=== PATIENT | female | born 1960 | race Caucasian/White ===

== ENCOUNTER → 2017-12-23 17:30 | Outpatient (CLI) | payer BC, SELFPAY ==
--- NOTE | 2017-12-23 17:30 | BI_ITS ---
MAMMOGRAPHY - BILATERAL SCREENING REASON FOR EXAM: Female, 57 years old. Routine annual screening examination. PERTINENT HISTORY: Aunt with breast cancer. TECHNIQUE: Digital bilateral breast yasmine (3D mammographic acquisition) in the CC and MLO projections. 2-D mediolateral oblique (MLO) and craniocaudad (CC) views of both breasts were obtained. CAD: Full Field Digital Mammography with Computer Added Detection was performed. COMPARISON: No comparison mammograms available at this time. If any prior films become available, an addendum to this report can be generated. FINDINGS: Breast Composition: The breasts are almost entirely fatty. There are no dominant masses or suspicious calcifications. Benign appearing bilateral axillary lymph nodes. No other significant abnormalities are identified. BI/SCREENING MAMM (CAD), BILAT IMPRESSION: Negative screening mammogram. Yearly followup mammogram recommended. (A) ASSESSMENT CATEGORY: BIRADS Category 2: Benign. A letter regarding these results will be sent to the patient by the facility within 30 days. Approximately 10% of breast cancers are not detected by mammography. A normal mammogram should not delay biopsy of a clinically suspicious abnormality. [id number] Electronically Signed: Bryan Rowe MD at 8:06 EDT Tel [phone], Service support ,
== END ==
PROVIDERS: Family Provider Family Medicine; PCP Family Medicine; Visit Provider Obstetrics & Gynecology
DX: Z12.31 Encounter for screening mammogram for malignant neoplasm of breast (principal)
CPT/HCPCS: 77063; 77067

== ENCOUNTER 2018-06-06 11:09 | Emergency (ER) | payer BC, SELFPAY ==
[2018-06-06 11:10] VITALS: BP 115/74; PULSE 82; RESP 18; TEMP 36.9; O2SAT 96; BMI 32.3
--- NOTE | 2018-06-06 11:27 | RAD_ITS ---
STUDY: X-RAY - LEFT SHOULDER REASON FOR EXAM: Female, 57 years old. Status post fall. Pain with decreased range of motion. TECHNIQUE: 2 view(s) of the shoulder. COMPARISON: None. FINDINGS: Normal glenohumeral articulation. Normal acromioclavicular joint. Normal acromion. There is an impacted fracture of the humeral neck. There is fracture of the greater tuberosity. The soft tissue structures are unremarkable. Normal visualized pulmonary apex. RAD/Shoulder min 2 Views IMPRESSION: Fracture of the proximal left humerus Electronically Signed: Michi Alvarado MD at 11:56 EST Tel , Service support ,
--- NOTE | 2018-06-06 11:28 | ED.VISSUMM ---
- ER Visit Summary Date of Service: 06/06/18 Chief Complaint: Left shoulder pain status post fall History of Present Illness: The patient is a 57 F who presents with left shoulder pain. The patient tripped about 1 hour ago and landed directly on her left shoulder. No head trauma or LOC. She has pain in the left shoulder. Is worse with movement. She took nothing for it. She denies any previous fractures or surgeries to this shoulder Physical Examination: Vital signs reviewed. Exam of the left shoulder reveals tenderness over the proximal humeral area. There is no clavicular or scapular tenderness. She is limited range of motion secondary to pain. She has 2+ radial pulses. Sensation is intact distally. Test Results: X-rays of the left shoulder per my interpretation reveals a proximal humeral fracture Emergency Department Course and Treatment: Patient was given [place] here. I will give her a sling for comfort. She will be given [place] for home. She will be given orthopedic follow-up. Treatment Plan: [] Disposition: Discharge Impression: Left proximal humeral fracture This note was generated with [employer] dictation software. It may contain incorrect words, spelling, and punctuation that were not noted in review of the chart prior to signing ED Disposition - Plan for ED Patient: Chief Complaint: Upper Extremity Injury Referrals: Jama Bardales MD [Primary Care Provider] -
[2018-06-06] MEDS: HYDROcodone Bitartrate/Apap 5/325 Tablet PO (11:33)
--- NOTE | 2018-06-06 12:03 | ED.DEP ---
ED Disposition - Plan for ED Patient: Disposition: Home or Assisted Living Chief Complaint: Upper Extremity Injury Instructions: ED Fx Shoulder Prescriptions: Hydrocodone Bitart/Apap 5-325 [[place] 5MG-325MG] 1 tab PO Q6H PRN PRN 3 Days #10 tab PRN Reason: Pain Referrals: Jama Bardales MD [Primary Care Provider] -
[2018-06-06 12:23] VITALS: PULSE 105; RESP 16; O2SAT 99
== END 2018-06-06 12:25 | disposition home or self-care (01) ==
PROVIDERS: Emergency Provider Emergency Medicine; Family Provider Family Medicine; PCP Family Medicine
DX: S42.202A Unspecified fracture of upper end of left humerus, initial encounter for closed fracture (principal); W01.0XXA Fall on same level from slipping, tripping and stumbling without subsequent striking against object, initial encounter; Y93.9 Activity, unspecified; Y92.89 Other specified places as the place of occurrence of the external cause; Y99.8 Other external cause status
CPT/HCPCS: 73030; 99283

== ENCOUNTER → 2020-08-10 13:20 | Outpatient (CLI) | payer OTHER, SELFPAY ==
--- NOTE | 2020-08-10 13:22 | BI_ITS ---
MAMMOGRAPHY - BILATERAL SCREENING REASON FOR EXAM: Female, 60 years old. Routine annual screening examination. PERTINENT HISTORY: Aunt with breast cancer. TECHNIQUE: Digital bilateral breast chao (3D mammographic acquisition) in the CC and MLO projections. 2-D mediolateral oblique (MLO) and craniocaudad (CC) views of both breasts were obtained. CAD: Full Field Digital Mammography with Computer Added Detection was performed. COMPARISON: Comparison is made with prior examination dated 12/23/2017. FINDINGS: Breast Composition: The breasts are almost entirely fatty. There are no dominant masses or suspicious calcifications. Stable benign-appearing bilateral axillary lymph nodes. No other significant abnormalities are identified. There has been no significant change since the prior study. BI/SCRN MAMM (CAD)W/CHAO BILAT IMPRESSION: Stable bilateral screening mammogram. Yearly follow-up mammogram recommended. (A) ASSESSMENT CATEGORY: BIRADS Category 2: Benign. A letter regarding these results will be sent to the patient by the facility within 30 days. Approximately 10% of breast cancers are not detected by mammography. A normal mammogram should not delay biopsy of a clinically suspicious abnormality. [id number] Electronically Signed: Bryan Rowe MD at 9:44 EST , Service support ,
[2020-08-16 16:21] LABS: HPV APTIMA, High Risk Negative (Negative)
== END ==
PROVIDERS: PCP Family Medicine; Referring Provider Nurse Practitioner Women's Health; Visit Provider Nurse Practitioner Women's Health
DX: Z12.4 Encounter for screening for malignant neoplasm of cervix (principal); Z12.31 Encounter for screening mammogram for malignant neoplasm of breast; Z80.3 Family history of malignant neoplasm of breast
CPT/HCPCS: 77063; 77067; 87624; 88175; G0145

== ENCOUNTER → 2020-08-28 16:09 | Outpatient (CLI) | payer OTHER, SELFPAY ==
[2020-08-10 13:59] VITALS: BMI 33.5
--- NOTE | 2020-08-28 16:13 | US_ITS ---
STUDY: ULTRASOUND OF THE FEMALE PELVIS - COMPLETE REASON FOR EXAM: Female, 60 years old. RLQ PAIN TECHNIQUE: Endovaginal TECHNICAL QUALITY: Adequate. COMPARISON: None. FINDINGS: The uterus is retroverted and is in a midline position. The uterus measures 6.8 x 6.5 x 3.8 cm. Normal uterine cervix. The endometrium measures 4 mm in thickness, and is hyperechoic. There is no demonstrated endometrial mass. There is a 7 x 6 mm probable small fundal fibroid. The patient does not have an I.U.D. The right ovary is visualized. The right ovary measures 1.9 x 1.5 x 1.0 cm. There is no right ovarian cyst or ovarian mass. There is no visualized right adnexal mass or complex lesion. There is normal arterial and normal venous vascularity. The left ovary is visualized. The left ovary measures 2.5 x 1.9 x 1.2 cm. There is no left ovarian cyst or ovarian mass. There is no visualized left adnexal mass or complex lesion. There is normal arterial and normal venous vascularity. There is no fluid in the cul-de-sac. The pre void volume of the bladder was 529 ml. US/Transvaginal Non- IMPRESSION: Probable small uterine fibroid in a retroverted uterus. Electronically Signed: Oscar Carbone DO at 17:09 EST Tel [phone], Service support ,
--- NOTE | 2020-08-28 16:13 | US_ITS ---
STUDY: ULTRASOUND OF THE FEMALE PELVIS - COMPLETE REASON FOR EXAM: Female, 60 years old. RLQ PAIN TECHNIQUE: Endovaginal TECHNICAL QUALITY: Adequate. COMPARISON: None. FINDINGS: The uterus is retroverted and is in a midline position. The uterus measures 6.8 x 6.5 x 3.8 cm. Normal uterine cervix. The endometrium measures 4 mm in thickness, and is hyperechoic. There is no demonstrated endometrial mass. There is a 7 x 6 mm probable small fundal fibroid. The patient does not have an I.U.D. The right ovary is visualized. The right ovary measures 1.9 x 1.5 x 1.0 cm. There is no right ovarian cyst or ovarian mass. There is no visualized right adnexal mass or complex lesion. There is normal arterial and normal venous vascularity. The left ovary is visualized. The left ovary measures 2.5 x 1.9 x 1.2 cm. There is no left ovarian cyst or ovarian mass. There is no visualized left adnexal mass or complex lesion. There is normal arterial and normal venous vascularity. There is no fluid in the cul-de-sac. The pre void volume of the bladder was 529 ml. US/Pelvic (Non ) IMPRESSION: Probable small uterine fibroid in a retroverted uterus. Electronically Signed: Oscar Carbone DO at 17:09 EST Tel [phone], Service support ,
== END ==
PROVIDERS: PCP Family Medicine; Referring Provider Nurse Practitioner Women's Health; Visit Provider Nurse Practitioner Women's Health
DX: R10.2 Pelvic and perineal pain (principal)
CPT/HCPCS: 76830; 76856; 93976

== ENCOUNTER → 2022-12-05 | Outpatient (CLI) | payer OTHER, SELFPAY ==
[2022-12-05 17:46] LABS: Basophil# 0.06 X10^3/uL; Basophil% 0.8 % (0-1); Eosinophil# 0.18 X10^3/uL; Eosinophils% 2.5 % (0-5); Hematocrit 47.2 % (37-47); Hemoglobin 15.4 g/dL (12.0-15.0); Lymphocyte % 34.4 % (19-41); Mean Corp Hgb Conc 32.6 g/dL (32-36); Mean Corpuscular Volume 91.8 fL (81-99); Mean Platelet Vol. 10.6 fl (6.2-12.0); Monocyte% 6.9 % (0-10); NRBC Flagged by Analyzer 0 % (0-5); Neutrophil # 3.98 X10^3/uL (2.7-7.7); Neutrophil % 54.8 % (47-70); Platelet Count 285 K/mm3 (150-450); RBC Distribution Width CV 12.8 % (11.6-14.6); RBC Distribution Width SD 43.1 fl (35.1-43.9); Red Blood Count 5.14 M/mm3 (4.2-5.4); White Blood Count 7.3 K/mm3 (4.4-11.0)
== END | disposition home or self-care (01) ==
LOC: LAB 15:57
PROVIDERS: PCP Family Medicine; Visit Provider Obstetrics & Gynecology
DX: R10.2 Pelvic and perineal pain (principal); G89.29 Other chronic pain
CPT/HCPCS: 36415; 85025

== ENCOUNTER → 2022-12-13 | Outpatient (CLI) | payer OTHER, SELFPAY ==
--- NOTE | 2022-12-13 15:34 | US_ITS ---
STUDY: ULTRASOUND OF THE FEMALE PELVIS - COMPLETE REASON FOR EXAM: Female, 62 years old. pelvic pain LMP: TECHNIQUE: Transabdominal and Transvaginal TECHNICAL QUALITY: Adequate. COMPARISON: 08/28/2020. FINDINGS: The uterus is retroverted and is in a midline position. The uterus measures 8.3 x 5.3 x 3.8 cm. Normal uterine cervix. The endometrium measures 3 mm in thickness, and is hyperechoic. There is no demonstrated endometrial mass. Diffusely heterogeneous uterus consistent with diffuse leiomyomatous change. Numerous focal fibroids measuring as much as 1.6 cm. The right ovary is visualized. The right ovary measures 3.1 x 2.1 x 1.1 cm. There is a complex 7 mm cyst. There is no visualized right adnexal mass or complex lesion. There is normal arterial and normal venous vascularity. The left ovary is visualized. The left ovary measures 2.8 x 1.2 x 1.9 cm. There is no left ovarian cyst or ovarian mass. There is no visualized left adnexal mass or complex lesion. There is normal arterial and normal venous vascularity. There is no fluid in the cul-de-sac. The pre void volume of the bladder was 506 ml. US/Pelvic (Non ) IMPRESSION: Probable diffuse leiomyomatous change along with multiple focal fibroids. Electronically Signed: Cayetano Chang MD at 16:49 EDT ,
== END | disposition home or self-care (01) ==
LOC: US 15:34
PROVIDERS: PCP Family Medicine; Referring Provider Obstetrics & Gynecology; Visit Provider Obstetrics & Gynecology
DX: R10.2 Pelvic and perineal pain (principal); G89.29 Other chronic pain
CPT/HCPCS: 76830; 76856; 93976

== ENCOUNTER → 2022-12-27 | Outpatient (CLI) | payer OTHER, SELFPAY ==
[2022-12-27 09:46] LABS: Absolute Lymphocyte Count 2.15 X10^3/uL (0.83-4.51); Absolute Neutrophil Count 3.2 X10^3/uL (2.0-7.7); Basophil# 0.06 X10^3/uL; Eosinophil# 0.16 X10^3/uL; Eosinophils% 2.7 % (0-5); Hematocrit 46.6 % (37-47); Hemoglobin 16.1 g/dL (12.0-15.0); Lymphocyte # 2.15 X10^3/ul (0.83-4.51); Lymphocyte % 36.2 % (19-41); Mean Corp Hgb Conc 34.5 g/dL (32-36); Mean Corpuscular Hgb 30.6 pg (27.0-32.0); Mean Corpuscular Volume 88.4 fL (81-99); Mean Platelet Vol. 10.1 fl (6.2-12.0); Monocyte# 0.39 X10^3/uL; Monocyte% 6.6 % (0-10); NRBC Flagged by Analyzer 0 % (0-5); Neutrophil # 3.17 X10^3/uL (2.7-7.7); Neutrophil % 53.3 % (47-70); Platelet Count 247 K/mm3 (150-450); RBC Distribution Width CV 12.9 % (11.6-14.6); RBC Distribution Width SD 41.9 fl (35.1-43.9); Red Blood Count 5.27 M/mm3 (4.2-5.4); White Blood Count 5.9 K/mm3 (4.4-11.0)
[2022-12-28 04:07] LABS: Cancer Antigen 125 15.5 U/mL (0.0-38.1); Carcinoembryonic Antigen 1.9 ng/mL (0.0-4.7)
== END | disposition home or self-care (01) ==
LOC: PAVLAB 09:33
PROVIDERS: PCP Family Medicine; Referring Provider Obstetrics & Gynecology; Visit Provider Obstetrics & Gynecology
DX: R10.2 Pelvic and perineal pain (principal); G89.29 Other chronic pain
CPT/HCPCS: 36415; 82378; 85025; 86304

== ENCOUNTER → 2023-01-01 | Outpatient (CLI) | payer OTHER, SELFPAY ==
--- NOTE | 2023-01-01 16:02 | BI_ITS ---
MAMMOGRAPHY - BILATERAL SCREENING REASON FOR EXAM: Female, 62 years old. Routine annual screening examination. PERTINENT HISTORY: Aunt with breast cancer. TECHNIQUE: Digital bilateral breast chao (3D mammographic acquisition) in the CC and MLO projections. 2-D mediolateral oblique (MLO) and craniocaudad (CC) views of both breasts were obtained. CAD: Full Field Digital Mammography with Computer Added Detection was performed. COMPARISON: Comparison is made with prior study dated August 10, 2020 and December 23, 2017. FINDINGS: Breast Composition: The breasts are almost entirely fatty. There are no dominant masses or suspicious calcifications. Stable benign-appearing bilateral axillary No other significant abnormalities are identified. There has been no significant change since the prior study. BI/SCRN MAMM (CAD)W/CHAO BILAT IMPRESSION: Stable bilateral screening mammogram. Yearly follow-up mammogram recommended. (A) ASSESSMENT CATEGORY: BIRADS Category 2: Benign. A letter regarding these results will be sent to the patient by the facility within 30 days. Approximately 10% of breast cancers are not detected by mammography. A normal mammogram should not delay biopsy of a clinically suspicious abnormality. [id number] Electronically Signed: Bryan Rowe MD at 8:27 EDT ,
== END | disposition home or self-care (01) ==
LOC: OPBI 16:00
PROVIDERS: PCP Family Medicine; Referring Provider Registered Nurse; Visit Provider Registered Nurse
DX: Z12.31 Encounter for screening mammogram for malignant neoplasm of breast (principal); Z80.3 Family history of malignant neoplasm of breast
CPT/HCPCS: 77063; 77067

== ENCOUNTER → 2023-05-06 | Outpatient (CLI) | payer OTHER, SELFPAY ==
--- NOTE | 2023-05-06 15:30 | CT_ITS ---
STUDY: CT ABDOMEN AND PELVIS WITH CONTRAST REASON FOR EXAM: Female, 62 years old. Right lower quadrant pain RADIATION DOSAGE (If Supplied By Facility): CTDIvol = ( 17.97 ) mGy, DLP = ( 1242.51 ) mGycm TECHNIQUE: Transaxial images were obtained from the dome of the diaphragm to the symphysis pubis without oral contrast. Oral and amp; IV Readi-CAT and amp; 100mL Isovue-300 was administered. Sagittal and coronal images were reconstructed. Individualized dose optimization techniques were used for this CT. COMPARISON: None. FINDINGS: The visualized lung bases are unremarkable. The visualized portions of the heart are within normal limits. Normal liver. Status post cholecystectomy. No significant dilatation of the extrahepatic biliary system. Normal spleen. Normal pancreas. Normal bilateral adrenal glands. Subcentimeter cysts in the right kidney. Normal left kidney. Hiatal hernia. Normal small intestine. Diverticulosis of the colon. The appendix is visualized and appears normal. Normal abdominal aorta. Normal inferior vena cava. Normal retroperitoneum. Normal urinary bladder. Normal abdominal wall. Grade 1 spond[address]isthesis at L4-5. CT/Abdomen/Pelvis WITH Contrast IMPRESSION: Subcentimeter right renal cysts. Hiatal hernia. Diverticulosis of the colon. Electronically Signed: Oscar Carbone DO at 23:12 EST ,
[2023-05-06 15:50] LABS: EGFR FINGERSTICK > 60.0000 mL/min (>60)
== END | disposition home or self-care (01) ==
LOC: CT 15:20
PROVIDERS: PCP Family Medicine; Referring Provider Internal Medicine Gastroenterology; Visit Provider Internal Medicine Gastroenterology
DX: R10.2 Pelvic and perineal pain (principal); G89.29 Other chronic pain; N81.6 Rectocele
CPT/HCPCS: 74177; Q9967; A4216

== ENCOUNTER 2023-05-14 07:31 | Day surgery (SDC) | payer OTHER, SELFPAY ==
--- NOTE | 2023-05-13 | COLBX_PTH ---
PATIENT: NIKOS FERREIRA LOC: EN U#:[id number] AGE/SX: 62/F ROOM: RE05/14/[address]: Dr. Jay Aguila DO : 1960 BED: DIS: 05/14/2023 SPEC #: [id number] RECD: 05/14/23 11:36 STATUS: MARIELA SAL #: [id number] ARTI: 05/13/23 00:[address]: Jay Aguila DEPT: SURGICAL PATHOLOGY RECD BY: Delisa Cespedes ENTERED: 05/14/23 11:37 SP TYPE: COLON BX OTHR DR: Dr. Jama Bardales MD Tissues: A - Sigmoid colon biopsy B - Ileum, NOS C - COLON BIOPSY D - COLON BIOPSY E - COLON BIOPSY Procedures: Surgery Specimen Level IV Surgery Specimen Level V HEADER OPERATION: Colonoscopy with biopsy and polypectomy PRE-OP DIAGNOSIS: Chronic pelvic pain, rectocele TISSUE SUBMITTED: A - Sigmoid polyp biopsy, B - Terminal ileum biopsy, C - Random colon biopsy, D - Splenic flexure polyp biopsy, E - Descending colon polyp MICROSCOPIC DIAGNOSIS A. Sigmoid colon polyp, biopsy: Hyperplastic polyp. B. Terminal ileum, biopsy: No pathologic change. C. Colon, random biopsy: Focal acute colitis. See comment. D. Colonic polyp at splenic flexure, biopsy: Hyperplastic polyp. E. Descending colon polyp, biopsy: Hyperplastic polyp. AM:samuel 05/15/2023 COMMENT C. Rare cryptitis is identified. Clinical correlation is suggested. MICROSCOPIC DESCRIPTION Slides are reviewed. GROSS DESCRIPTION A - Received in fixative is one container labeled with the patient's name and designated sigmoid polyp. The specimen consists of one irregular fragment of light billy soft tissue that measures 0.5 x 0.3 x 0.1 cm. The specimen is totally submitted in one cassette. B - Received in fixative is one container labeled with the patient's name and designated terminal ileum biopsy. The specimen consists of multiple irregular fragments of light billy soft tissue that in aggregate measure 1.0 x 0.5 x 0.1 cm. The specimen is totally submitted in one cassette. C - Received in fixative is one container labeled with the patient's name and designated random colon biopsy. The specimen consists of multiple irregular fragments of light billy soft tissue that in aggregate measure 1.5 x 0.5 x 0.1 cm. The specimen is totally submitted in one cassette. D - Received in fixative is one container labeled with the patient's name and designated splenic flexure polyp. The specimen consists of one irregular fragment of light billy soft tissue that measures 0.5 x 0.2 x 0.1 cm. The specimen is totally submitted in one cassette. E - Received in fixative is one container labeled with the patient's name and designated descending colon polyp. The specimen consists of one irregular fragment of light billy soft tissue that measures 0.5 x 0.5 x 0.1 cm. The specimen is totally submitted in one cassette. / AM:samuel 05/14/2023 TC:2 CPT: 77139 x5
[2023-05-14] MEDS: Lactated Ringers 1,000 ML 15 ML IV (07:52)
[2023-05-14 07:53] VITALS: BP 136/100; PULSE 88; RESP 18; TEMP 37.2; O2SAT 99; BMI 33.4
--- NOTE | 2023-05-14 08:02 | HP.PCM_ITS ---
History and Physical Date of Admission: 05/14/23 62 F who presents to the office today for initial consult. Gynecology OV 12.05.22 with pelvic and right sided abdominal pain with bloating and intermittent loose stools alternating with constipation; present intermittently for 2 two months.?US pelvic 12.13.22?retroverted uterus; numerous fibroids up to 1.6cm with diffuse leiomyomatous changes; complex R ovarian cyst (new).? Findings not likely to contribute to pelvic pain.?Biochemical? CBC, CEA, CA125 WNL.? ? ?OV 04.10.23 Pt reports ongoing RLQ abdominal pain that is worse with increased stress. Bowels have been normal. Denies diarrhea or constipation. Has never had a colonoscopy or other prior work up. ROS Const Constitutional: No fatigue ENT ENT: No difficulty swallowing Gastro GI: Positive for abdominal pain; No belching, bloating, change in bowel habits, change in stool character, coffee ground emesis, constipation, cramping, diarrhea, heartburn, difficulty swallowing, feeling full early, excessive flatus, incontinent of stools, Vomiting blood/hematemesis, Blood in stool, loose stools, Black,tarry stools, nausea/dyspepsia, pain with swallowing, vomiting or other Musc Musculoskeletal: No joint pain Skin Skin: No yellowing of the eye or itchy eyes Psych Psychiatric: No anxiety and No depression Endo Endocrine: No fatigue Aller/Imm Allergy/Immunologic: No itchy eyes Kenn/Lymp Hematologic/Lymphatic: No easy bleeding or easy bruising Exam Const General: cooperative and comfortable Nutritional Appearance: average body habitus and well nourished [facility] Head: normal to inspection Ears: hearing grossly normal bilaterally Nose: external nose normal Face and sinus: normal facial exam Mouth: oral mucosae normal Throat: posterior oropharynx normal Eyes General: appearance normal, both eyes and all related structures Neck Neck: normal visual inspection Chest Chest palpation & inspection: normal inspection of the chest and normal palpation of entire chest wall Resp Effort & Inspection: normal respiratory effort Auscultation: Bilateral: Clear to Auscultation Cardio Palpation: normal PMI Rate: regular rate Rhythm: regular rhythm GI Inspection: normal to inspection Auscultation: normal bowel sounds Percussion: normal to percussion Palpation: no hepatosplenomegaly Skin General: no rashes or lesions noted Neuro General: patient alert Extrem General: normal to inspection Psych Affect: normal affect Quality Reporting Tobacco Screening ([facility] 138) Smoking Status: Never smoker Assessment and Plan Assessment and Plan (1) Chronic pelvic pain in female: Status: Chronic Comment: ultrasound ordered, discussed criteria for ER evaluation if needed. if normal ultrasound recommend GI consult. 12/16 CEA, CA 125 & CBC Plan: Chronic right lower quadrant abdominal pain. Differential diagnosis does include ulceration at the ileocecal valve, small bacterial overgrowth, ulcerations of the cecum, mesenteric adenitis, ileocecal stricture. She will undergo colonoscopy for evaluation of the lower GI tract and intubation of the terminal ileum to look for quiescent disease. She has never had a colonoscopy s o this will be for screening purposes. She was explained alternatives, risk, benefits including outstanding bleeding, infection, sepsis, perforation, need for surgery . 2 of ASA of 3. She will also need a CT scan of the abdomen pelvis prior to undergoing colonoscopy. (2) Rectocele: Status: Chronic Comment: stool softeners, fu for pessary fitting, consider gellhorn Orders: Orders Abdomen/Pelvis WITH Contrast Today G89.29 - Other chronic pain, N81.6 - Rectocele, R10.2 - Pelvic and perineal pain I have examined the patient and the H&P has been reviewed. There are no clinical changes since date of exam.
[2023-05-14 08:40] VITALS: BP 136/99; BP 84/46; PULSE 86; RESP 16; TEMP 36.9; O2SAT 95
--- NOTE | 2023-05-14 08:41 | OP.COLON_ITS ---
Patient Name: Maggi Robin Procedure Date: 05/14/2023 8:12 AM Date of : 1960 Age: 62 Procedure: Colonoscopy Indications: Screening for colorectal malignant neoplasm Providers: Jay Aguila DO Medicines: Monitored Anesthesia Care Patient Profile: This is a 62 year old female. Refer to note in patient chart for documentation of history and physical. Last Colonoscopy: more than 10 years ago. Complications: No immediate complications. Procedure: Pre-Anesthesia Assessment: - Prior to the procedure, a History and Physical was performed, and patient medications and allergies were reviewed. The patient is competent. The risks and benefits of the procedure and the sedation options and risks were discussed with the patient. All questions were answered and informed consent was obtained. Patient identification and proposed procedure were verified by the physician. Mental Status Examination: alert and oriented. CV Examination: normal. Prophylactic Antibiotics: The patient does not require prophylactic antibiotics. Prior Anticoagulants: The patient has taken no anticoagulant or antiplatelet agents. After reviewing the risks and benefits, the patient was deemed in satisfactory condition to undergo the procedure. The anesthesia plan was to use monitored anesthesia care (MAC). Immediately prior to administration of medications, the patient was re-assessed for adequacy to receive sedatives. The heart rate, respiratory rate, oxygen saturations, blood pressure, adequacy of pulmonary ventilation, and response to care were monitored throughout the procedure. The physical status of the patient was re-assessed after the procedure. After I obtained informed consent, the scope was passed under direct vision. Throughout the procedure, the patient's blood pressure, pulse, and oxygen saturations were monitored continuously. The colonoscope was introduced through the anus and advanced to the terminal ileum. The colonoscopy was performed without difficulty. The patient tolerated the procedure well. The quality of the bowel preparation was adequate. The terminal ileum, ileocecal valve, appendiceal orifice, and rectum were photographed. Scope In: 8:19:57 AM Scope Withdrawal Time 0 hours 11 minutes 11 seconds Scope Out: 8:34:39 AM Total Procedure Duration Time 0 hours 14 minutes 42 seconds Findings: The perianal and digital rectal examinations were normal. Multiple small and large-mouthed diverticula were found in the recto-sigmoid colon, sigmoid colon, descending colon and splenic flexure. Two sessile polyps were found in the recto-sigmoid colon and splenic flexure. The polyps were 1 to 2 mm in size. These polyps were removed with a cold snare. Resection and retrieval were complete. Verification of patient identification for the specimen was done. Estimated blood loss was minimal. A 10 mm polyp was found in the descending colon. The polyp was sessile. The polyp was removed with a hot snare. Resection and retrieval were complete. Verification of patient identification for the specimen was done. Estimated blood loss was minimal. An area of mildly congested mucosa was found in the sigmoid colon, in the descending colon, in the transverse colon and in the ascending colon. Biopsies were taken with a cold forceps for histology. Verification of patient identification for the specimen was done. Estimated blood loss was minimal. The terminal ileum appeared normal. Biopsies were taken with a cold forceps for histology. Verification of patient identification for the specimen was done. Estimated blood loss was minimal. Impression: - Diverticulosis in the recto-sigmoid colon, in the sigmoid colon, in the descending colon and at the splenic flexure. - Two 1 to 2 mm polyps at the recto-sigmoid colon and at the splenic flexure, removed with a cold snare. Resected and retrieved. - One 10 mm polyp in the descending colon, removed with a hot snare. Resected and retrieved. - Congested mucosa in the sigmoid colon, in the descending colon, in the transverse colon and in the ascending colon. Biopsied. - The examined portion of the ileum was normal. Biopsied. Recommendation: - Discharge patient to home. - Resume previous diet. - Continue present medications. - Await pathology results. - Repeat colonoscopy in 5 years for surveillance. Procedure Code(s): --- Professional --- 82517, Colonoscopy, flexible; with removal of tumor(s), polyp(s), or other lesion(s) by snare technique 13218, 59, Colonoscopy, flexible; with biopsy, single or multiple CPT copyright 2021 [employer]. All rights reserved. The codes documented in this report are preliminary and upon roofing layer review may be revised to meet current compliance requirements. Jay Aguila DO 05/14/2023 8:41:21 AM This report has been signed electronically. Number of Addenda: 0 Note Initiated On: 05/14/2023 8:12 AM
--- NOTE | 2023-05-14 08:41 | OP.CCLET_ITS ---
05/14/2023 Jama Bardales Md Re : Colonoscopy procedure for Maggi Robin Dear Catia This procedure was performed on Sunday, May 14, 2023. My impressions and recommendations are as follows: Impressions : - Diverticulosis in the recto-sigmoid colon, in the sigmoid colon, in the descending colon and at the splenic flexure. - Two 1 to 2 mm polyps at the recto-sigmoid colon and at the splenic flexure, removed with a cold snare. Resected and retrieved. - One 10 mm polyp in the descending colon, removed with a hot snare. Resected and retrieved. - Congested mucosa in the sigmoid colon, in the descending colon, in the transverse colon and in the ascending colon. Biopsied. - The examined portion of the ileum was normal. Biopsied. Recommendations : - Discharge patient to home. - Resume previous diet. - Continue present medications. - Await pathology results. - Repeat colonoscopy in 5 years for surveillance. My findings are described in the full procedure note, which is enclosed. If I can be of further assistance, please feel free to contact me at . Sincerely, Jay Aguila DO 05/14/2023 8:41:21 AM This report has been signed electronically.
[2023-05-14 08:45] VITALS: BP 136/99; BP 96/54; PULSE 87; RESP 16; O2SAT 96
[2023-05-14 08:50] VITALS: BP 136/99; BP 97/61; PULSE 75; RESP 16; O2SAT 94
[2023-05-14 08:55] VITALS: BP 136/99; BP 97/66; PULSE 69; RESP 16; TEMP 37.4; O2SAT 97
[2023-05-14 09:07] VITALS: BP 136/99
== END 2023-05-14 09:42 | disposition home or self-care (01) ==
LOC: EN 07:31 → AC 07:32
PROVIDERS: PCP Family Medicine; Referring Provider Family Medicine; Visit Provider Internal Medicine Gastroenterology
PROC: 0DJD8ZZ Inspection of Lower Intestinal Tract, Via Natural or Artificial Opening Endoscopic (ICD-10-PCS; CPT 45378; principal; 2023-05-14 08:25)
DX: N81.6 Rectocele (principal); K63.5 Polyp of colon; R10.2 Pelvic and perineal pain; K57.30 Diverticulosis of large intestine without perforation or abscess without bleeding; K63.89 Other specified diseases of intestine; K52.9 Noninfective gastroenteritis and colitis, unspecified
CPT/HCPCS: 45385; 45380; 88305; 88307; J7120; J2405

== ENCOUNTER → 2023-06-26 | Outpatient (CLI) | payer OTHER, SELFPAY ==
--- OUTSIDE RECORDS SUMMARY | 2023-06-26 13:12 | XMS RPT_ITS | CCD ---
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 Name Role Phone Davey Subramanian Primary Care Provider EDUARDO LEZAMA Attending Unavailable DAVEY SUBRAMANIAN Primary Care Unavailable SHUN IRVIN Attending Unavailable DAVEY SUBRAMANIAN Primary Care Unavailable SHUN IRVIN Admitting Unavailable SHUN IRVIN Referring Unavailable DAVEY SUBRAMANIAN Primary Care Unavailable Medications Current Medications Medication Drug Class(es) Dates Sig (Normalized) Sig (Original) aspirin 81 mg delayed release oral tablet (1 source) Platelet Aggregation Inhibitor, Nonsteroidal Anti-inflammatory Drug take 1 tablet by mouth once daily aspirin 81 MG EC tablet Take 81 mg by mouth daily . 0 Active cholecalciferol, vitamin D3, (VITAMIN D3 ORAL) (1 source) cholecalciferol, vitamin D3, (VITAMIN D3 ORAL) Take by mouth . 0 Active Problems Problem Classification Problem Date Documented Da te Episodic/Chronic Fracture of upper limb (3 sources) Closed fracture of upper end of humerus; Translations: [Other nondisplaced fracture of upper end of left humerus, initial encounter for closed fracture] Onset: 09-16-2018 Episodic Other connective tissue disease (1 source) Full thickness rotator cuff tear; Translations: [Complete tear of left rotator cuff] Episodic Other connective tissue disease (2 sources) Complete rotator cuff tear or rupture of left shoulder, not specified as traumatic; Translations: [Complete rotator cuff tear or rupture of left shoulder, not specified as traumatic] Onset: 09-16-2018 Episodic Other non-traumatic joint disorders (3 sources) Pain in left wrist; Translations: [Left wrist pain] Onset: 09-16-2018 Episodic Residual codes; unclassified (2 sources) Pain, unspecified; Translations: [Pain, unspecified] Onset: 09-16-2018 Results Test Name Value Interpretation Reference Range Facil ity Vital Signs Date Time Vital Sign Value Performing Clinician Tracy iglesias 09-16-2018 15:43-0400 BMI (Body Mass Index) 33.57 kg/m2 Shun Irvin [facility] 09-16-2018 15:43-0400 Height 167.6 cm Shun Irvin [facility] 09-16-2018 15:43-0400 Weight 94.35 kg Shun Irvin [facility] Encounters Encounter Date Encounter Type Care Provider Facility Start: 09-16-2018 End: 09-20-2018 Patient encounter procedure SHUN IRVIN [facility] Start: 09-16-2018 End: 09-16-2018 Patient encounter procedure SHUN IRVIN [facility] Start: 09-16-2018 End: 09-16-2018 Office outpatient new 30 minutes Shun Irvin Work Phone: [facility] Plan of Treatment Date Care Activity Detail Author Start: 02-28-2018 Influenza vaccination given SE QUENTIAL INFLUENZA VACCINE (#1) [facility] Start: 1960 Hepatitis C antibody , confirmatory test HEPATITIS C SCREENING [facility] Start: 1961 Protein mass conc Mammogram [facility] Start: 1961 Screening for malign ant neoplasm of cervix PAP SMEAR [facility] Start: 1961 Screening for malign ant neoplasm of colon Colorectal Cancer Screening: Colonoscopy [facility] Start: 1960 Tetanus vaccination TETANUS EVERY 10 YR [facility] Payers Date Payer Category Payer Unknown [employer] PPO xxxxxxxxxxxx 2018-Present xxxxxxxxxxxx [id number] 2018 Unknown [id number] 2016 Unknown [id number] 1961 Unknown [id number] 1961 Unknown [id number] 1961 Unknown [id number] Social History Date Type Detail Facility Start: 09-16-2018 Tobacco smoking status NHIS Never sm oker [facility] Sex Assigned At Not on file [place] [facility] Summary Purpose Family History No Family History Records FoundNo Family History Records FoundNo Family History Records Found Advance Directives No Advanced Directives Records Found Patient has advance care planning documents on file. For more information, please contact: [place] [phone] No Advanced Directives Records FoundNo Advanced Directives Records Found History of Present Illness * Shun Irvin MD - 09/16/2018 4:57 PM EDT Dictation on: 09/16/2018 5:00 PM by: SHUN IRVIN [[id number]] in this encounter Assessments Diagnosis Left wrist pain- Primary Pain in joint, forearm Complete tear of left rotator cuff Other closed nondisplaced fracture of proximal end of left humerus, initial encounter Additional Source Comments INFORMATION SOURCE (unrecogn ized section and content) DATE CREATED AUTHOR AUTHOR'S ORGANIZ ATION 09/20/2018 [facility] DATE CREATED AUTHOR AUTHOR'S ORGANIZ ATION 04/02/2019 [facility] Reason for Visit (unrecogniz ed section and content) FOR RECORDS PERTAINING TO PATIENTS WHO ARE OR HAVE BEEN ENROLLED IN A CHEMICAL DEPENDENCY/SUBSTANCEABUSE PROGRAM, SOME INFORMATION MAY BE OMITTED. This clinical summary was aggregated from multiple sources. Caution should be exercised in using it in the provision of clinical care. This summary normalizes information from multiple sources, and as a consequence, information in this document may materially change the coding, format and clinical context of patient data. In addition, data may be omitted in some cases. CLINICAL DECISIONS SHOULD BE BASED ON THE PRIMARY CLINICAL RECORDS. [facility] [employer] provides no warranty or guarantee of the accuracy or completeness of information in this document.
[2023-06-26 13:13] LABS: Erythrocyte Sedimentation Rate 1 mm/hr (0-30)
[2023-06-26 13:27] LABS: CRP < 2.90 mg/L (0.0-3.0); LDH 193 U/L (84-246)
[2023-07-01 15:07] LABS: Cytoplasmic Ab (C-ANCA) <1:20 titer (Neg:<1:20); Endomysial Antibody IgA Negative (Negative); Immunoglobulin A 126 mg/dL (87-352); Immunoglobulin E 14 IU/mL (6-495); Immunoglobulin G 853 mg/dL (586-1602); Immunoglobulin M 53 mg/dL (26-217); Perinuclear Ab (P-ANCA) <1:20 titer (Neg:<1:20); t-Transglutaminase IgA <2 U/mL (0-3)
== END | disposition home or self-care (01) ==
PROVIDERS: PCP Family Medicine; Referring Provider Internal Medicine Gastroenterology; Visit Provider Internal Medicine Gastroenterology
DX: K52.9 Noninfective gastroenteritis and colitis, unspecified (principal)
CPT/HCPCS: 36415; 82784; 82785; 83516; 83615; 85652; 86140; 86255; 86256